=== PATIENT | male | born 1955 | race Caucasian/White ===

== ENCOUNTER 2020-01-01 10:18 | Emergency (ER) | payer OTHER, MEDICARE ==
[~2020-01-01] VITALS: Ht 172.7 cm; Wt 85.0 kg
[2020-01-01 11:32] LABS: HEMATOCRIT 49.2 % (39.0-50.0); HEMOGLOBIN 15.7 g/dl (14.0-18.0); IMMATURE GRANULOCYTES 0.3 % (0.0-5.0); MEAN CELL VOLUME 89.3 fL CALC (80.0-100.0); MEAN CORPUSCULAR HGB 28.5 pG CALC (26.0-32.0); MEAN CORPUSCULAR HGB CONC 31.9 g/dL CAL (32.0-36.0); NEUT# 8.99 thou/uL (1.82-7.42); RED BLOOD COUNT 5.51 mill/uL (4.70-6.10); RED CELL DISTRI WIDTH 12.6 % (11.5-15.5); URINE BILIRUBIN - DIPSTICK NEGATIVE (NEGATIVE); URINE BLOOD DIPSTICK LARGE (NEGATIVE); URINE COLOR YELLOW; URINE GLUCOSE - DIPSTICK NEGATIVE (NEGATIVE); URINE KETONE NEGATIVE (NEGATIVE); URINE LEUK ESTERASE TRACE (NEGATIVE); URINE PH 5.5 (4.5-8.0); URINE PROTEIN - DIPSTICK NEGATIVE (NEG-TRACE); URINE SPECIFIC GRAVITY 1.015; URINE UROBILINOGEN - DIPSTICK 0.2 E.U./dL (0.2)
[2020-01-01 11:33] LABS: URINE NITRITE - DIPSTICK POSITIVE (Negative)
[2020-01-01 11:38] LABS: URINE BACTERIA MANY hpf
[2020-01-01 11:53] LABS: ALBUMIN 4.4 g/dL (3.2-5.0); ALKALINE PHOSPHATASE 54 u/l (38-126); ANION GAP 12 (6-22 (CALC)); BUN 14 mg/dL (8-23); BUN/CREATININE RATIO 17 (12-20 (CALC)); CARBON DIOXIDE 27 mmol/l (22-30); CHLORIDE 101 mmol/l (95-108); CREATININE 0.8 mg/dL (0.7-1.3); GFR > 60 ML/MIN (>=60 (CALC)); GFR FOR AFR.AMER. > 60 ML/MIN (>=60 (CALC)); LIPASE 36 u/l (23-300); POTASSIUM 4.1 mmol/l (3.5-5.1); SGOT/AST 21 u/l (19-48); SODIUM 135 mmol/l (137-146); TOTAL PROTEIN 7.8 g/dL (6.3-8.2)
[2020-01-01] MEDS ORDERED: CIPROFLOXACN500 MG PO (12:00)
[2020-01-01 12:30] VITALS: BP 127/81
== END 2020-01-01 12:38 | disposition home or self-care (01) | DRG 690 ==
LOC: ED 10:18
PROC: 0T2BX0Z Change Drainage Device in Bladder, External Approach (ICD-10-PCS; principal; 2020-01-01)
DX: N39.0 Urinary tract infection, site not specified (principal); B96.5 Pseudomonas (aeruginosa) (mallei) (pseudomallei) as the cause of diseases classified elsewhere; Z96.0 Presence of urogenital implants

== ENCOUNTER 2024-02-03 07:08 | Emergency (ER) | payer OTHER ==
[~2024-02-03] VITALS: Ht 172.7 cm; Wt 80.7 kg
[~2024-02-03 07:08] MED LIST: CIPROFLOXACN500 MG PO
[2024-02-03 07:16] VITALS: BP 149/89
[2024-02-03] MEDS ORDERED: KETOROLAC TROMETHAMINE 30 MG/ML SDV IM ONE (07:25)
[2024-02-03 07:31] VITALS: BP 149/82
[2024-02-03 07:46] VITALS: BP 134/70
[2024-02-03] MEDS ORDERED: FLEXERIL5 M1 PO (08:41)
[2024-02-03] MEDS ORDERED: NAPROXEN500 MG PO (08:41)
[2024-02-03 08:50] VITALS: BP 125/74
[2024-02-03 08:51] VITALS: BP 125/74
== END 2024-02-03 08:52 | disposition home or self-care (01) | DRG 552 ==
LOC: ED 07:08
DX: M54.50 Low back pain, unspecified (principal)

== ENCOUNTER 2024-03-24 17:19 | Emergency (ER) | payer OTHER ==
[~2024-03-24] VITALS: Ht 172.7 cm; Wt 94.0 kg
[~2024-03-24 17:19] MED LIST changes: +FLEXERIL5 M1 PO; +NAPROXEN500 MG PO
[2024-03-24] MEDS ORDERED: SODIUM CHLORIDE 3,000 ML BAG FOR IRRIGATION IR ONE (17:50)
[2024-03-24] MEDS ORDERED: SODIUM CHLORIDE 1,000 ML BTL IR ONE (17:55)
[2024-03-24 19:10] VITALS: BP 148/72
== END 2024-03-24 19:14 | disposition home or self-care (01) | DRG 700 ==
LOC: ED 17:19
DX: T83.098A Other mechanical complication of other urinary catheter, initial encounter (principal); Y83.8 Other surgical procedures as the cause of abnormal reaction of the patient, or of later complication, without mention of misadventure at the time of the procedure; Z98.890 Other specified postprocedural states